=== PATIENT | female | born 1935 | race Caucasian/White ===

== ENCOUNTER 2020-08-17 16:29 | Outpatient (RCR) | payer MEDICARE, SELFPAY ==
[2020-08-17] MEDS: COVID-19 VACC, MRNA(PFIZER)/PF 30 MCG/0.3 ML SYRINGE IM (14:47)
[2020-09-07] MEDS: COVID-19 VACC, MRNA(PFIZER)/PF 30 MCG/0.3 ML SYRINGE IM (14:26)
== END 2020-11-21 23:59 ==
LOC: IMMUN 16:29
PROVIDERS: PCP Family Medicine; Visit Provider Family Medicine
DX: Z23 Encounter for immunization (principal)
CPT/HCPCS: 0001A; 0002A; 91300